=== PATIENT | female | born 1970 | race Two or more races ===

== ENCOUNTER 2023-04-29 11:28 | Inpatient (IN) | payer OTHER ==
[~2023-04-29] VITALS: Ht 157.5 cm; Wt 41.7 kg
[2023-04-29] MEDS: IV NS 0.9% 1,000 ML BAG IV ONE (13:15)
[2023-04-29 13:18] LABS: BASOPHILS # (AUTO) 0.1 K/uL (0.0-0.2); BASOPHILS % (AUTO) 0.5 % (0.0-2.0); EOSINOPHILS # (AUTO) 0.3 K/uL (0.0-0.7); HEMATOCRIT 40 % (33-45); LYMPHOCYTES # (AUTO) 2.2 K/uL (0.8-4.8); MEAN CORPUSCULAR HEMOGLOBIN 27 PG (26.0-33.0); MEAN CORPUSCULAR HGB CONC 33 g/dl (31.0-36.0); MEAN CORPUSCULAR VOLUME 82 fL (82-100); MONOCYTES # (AUTO) 0.7 K/uL (0.1-1.30); MONOCYTES % (AUTO) 7.1 % (2.0-12.0); NEUTROPHILS # (AUTO) 6.7 K/uL (1.8-8.9); NEUTROPHILS % (AUTO) 67.4 % (43.0-81.0); PLATELET COUNT (AUTO) 368 K/uL (150-450); RED BLOOD CELL COUNT(AUTO) 4.82 MIL/uL (4.0-5.2); RED CELL DISTRIBUTION WIDTH 17.1 % (11.5-15.0); WHITE BLOOD COUNT (AUTO) 9.9 K/uL (4.3-11.0)
[2023-04-29 13:27] LABS: CALCIUM, SERUM 8.7 mg/dL (8.5-10.1)
[2023-04-29 13:29] LABS: POTASSIUM 2.1 mmol/L (3.5-5.1)
[2023-04-29 13:33] LABS: ALBUMIN 4.3 g/dL (3.4-5.0); BILIRUBIN,DIRECT 0.1 mg/dL (0.0-0.2); BILIRUBIN,TOTAL 0.5 mg/dL (0.2-1.0); TOTAL PROTEIN, SERUM 8.2 g/dL (6.4-8.2)
[2023-04-29] MEDS ORDERED: POTASSIUM CL. PREMIX PERIPHER. 50 ML ONE ×4 (13:37→16:26)
[2023-04-29] MEDS ORDERED: POTASSIUM CHLORIDE 20 MEQ TAB.PRT.SR PO ONE (13:38)
[2023-04-29] MEDS ORDERED: LINA290C PO (13:40)
[2023-04-29] MEDS ORDERED: TRAM50TA2 PO (13:40)
[2023-04-29] MEDS ORDERED: LORA2TAB95 PO (13:40)
[2023-04-29] MEDS: POTASSIUM CHLORIDE 20 MEQ TAB.PRT.SR PO ONE ×2 (13:40→20:26)
[2023-04-29] MEDS ORDERED: CLON1TAB12 PO (13:40)
[2023-04-29] MEDS ORDERED: LEVO50TA PO (13:40)
[2023-04-29] MEDS ORDERED: TRAZ300T2 PO (13:40)
[2023-04-29] MEDS ORDERED: MULT-754 PO (13:40)
[2023-04-29] MEDS ORDERED: PANT40TA2 PO (13:40)
[2023-04-29] MEDS ORDERED: DULO20CA PO (13:40)
[2023-04-29 13:45] LABS: APPEARANCE,URINE SLIGHTLY CLOUDY (CLEAR); BILIRUBIN,URINE NEGATIVE (NEGATIVE); BLOOD, URINE TRACE-INTA Ery/uL (NEGATIVE); COLOR,URINE YELLOW (YELLOW); KETONES,URINE NEGATIVE (NEGATIVE); LEUKOCYTE ESTERASE ,URINE NEGATIVE (NEGATIVE); NITRITE, URINE NEGATIVE (NEGATIVE); PH,URINE 6.5 (5.0-8.0); PROTEIN,URINE 1+ mg/dl (NEGATIVE); UGLUCOSE NEGATIVE (NEGATIVE); UROBILINOGEN,URINE 0.2 EU/dL (0.2)
[2023-04-29] MEDS: POTASSIUM CL. PREMIX PERIPHER. 50 ML IV SCH (13:46)
[2023-04-29 13:47] LABS: ADD URINE CULTURE NO; BACTERIA,URINE Rare /HPF (None Seen); SQUAMOUS EPITHELIAL CELL,UR Rare /HPF (None Seen); WBC,URINE 0-2 /HPF (0-3)
[2023-04-29] MEDS ORDERED: ONDANSETRON HCL/PF 4 MG/2 ML VIAL IVP PRN (17:00)
[2023-04-29] MEDS ORDERED: ACETAMINOPHEN 325 MG TABLET PO PRN (17:00)
[2023-04-29 18:15] LABS: CALCIUM, SERUM 7.5 mg/dL (8.5-10.1); CREATININE 2.6 mg/dL (0.6-1.3); MAGNESIUM 1.9 mg/dL (1.8-2.4); POTASSIUM 2.9 mmol/L (3.5-5.1)
[2023-04-29] MEDS ORDERED: TRAZODONE 50 MG TABLET ONE (21:14)
[2023-04-29] MEDS: TRAZODONE 50 MG TABLET PO ONE (21:20)
[2023-04-29] MEDS ORDERED: TRAZODONE 50 MG TABLET PO ONE (21:30)
[2023-04-29] MEDS: IV LR 1000 ML 1,000 ML IV PRN (22:43)
[2023-04-29 22:44] VITALS: BP 116/75; TEMP 97.7; O2SAT 97
[2023-04-30] VITALS (7 sets, daily range): BP systolic 94–127; BP diastolic 46–79; TEMP 97.5–97.7; O2SAT 95–100
[2023-04-30 07:19] LABS: BASOPHILS % (AUTO) 0.7 % (0.0-2.0); EOSINOPHILS # (AUTO) 0.4 K/uL (0.0-0.7); EOSINOPHILS % (AUTO) 6.6 % (0.0-6.0); HEMATOCRIT 30 % (33-45); HEMOGLOBIN 9.8 g/dL (11.5-14.8); LYMPHOCYTES # (AUTO) 2.5 K/uL (0.8-4.8); LYMPHOCYTES % (AUTO) 41.6 % (20.0-44.0); MEAN CORPUSCULAR HEMOGLOBIN 27 PG (26.0-33.0); MEAN CORPUSCULAR HGB CONC 33 g/dl (31.0-36.0); MEAN CORPUSCULAR VOLUME 83 fL (82-100); MONOCYTES # (AUTO) 0.5 K/uL (0.1-1.30); MONOCYTES % (AUTO) 7.8 % (2.0-12.0); NEUTROPHILS # (AUTO) 2.6 K/uL (1.8-8.9); NEUTROPHILS % (AUTO) 43.3 % (43.0-81.0); PLATELET COUNT (AUTO) 258 K/uL (150-450); RED BLOOD CELL COUNT(AUTO) 3.62 MIL/uL (4.0-5.2)
[2023-04-30 07:50] LABS: CALCIUM, SERUM 7.8 mg/dL (8.5-10.1); CREATININE 2.4 mg/dL (0.6-1.3); MAGNESIUM 2.2 mg/dL (1.8-2.4); PHOSPHORUS 2.2 mg/dL (2.5-4.9)
[2023-04-30 07:58] LABS: POTASSIUM 2.6 mmol/L (3.5-5.1)
[2023-04-30] MEDS: PANTOPRAZOLE 40 MG TABLET.DR PO SCH (08:59)
[2023-04-30] MEDS: POTASSIUM CHLORIDE 10 MEQ TABLET.SA PO SCH (09:16)
[2023-04-30] MEDS: MORPHINE SULFATE INJ 4 MG/ML DISP.SYRIN IV ONE (09:17)
[2023-04-30] MEDS: POTASSIUM CL. PREMIX PERIPHER. 50 ML IV SCH ×2 (09:28→13:34)
[2023-04-30 11:04] LABS: APPEARANCE,URINE SLIGHTLY CLOUDY (CLEAR); BILIRUBIN,URINE NEGATIVE (NEGATIVE); BLOOD, URINE TRACE-INTA Ery/uL (NEGATIVE); COLOR,URINE YELLOW (YELLOW); KETONES,URINE NEGATIVE (NEGATIVE); LEUKOCYTE ESTERASE ,URINE TRACE (NEGATIVE); NITRITE, URINE NEGATIVE (NEGATIVE); PROTEIN,URINE NEGATIVE (NEGATIVE); UGLUCOSE NEGATIVE (NEGATIVE); UROBILINOGEN,URINE 0.2 EU/dL (0.2)
[2023-04-30 11:10] LABS: CREATININE, URINE 45.8 MG/DL (30.0-125.0)
[2023-04-30 12:02] LABS: EOSINOPHIL,URINE None Seen
[2023-04-30 12:23] LABS: ADD URINE CULTURE NO; BACTERIA,URINE Few /HPF (None Seen); RBC,URINE 0-2 /HPF (0-2); SQUAMOUS EPITHELIAL CELL,UR Few /HPF (None Seen)
[2023-04-30] MEDS: POTASSIUM CHLORIDE 10 MEQ TABLET.SA PO ONE (13:34)
[2023-04-30] MEDS: K PHOS NEUTRAL 250 MG TABLET PO ONE (15:16)
== END 2023-04-30 18:19 | disposition home or self-care (01) | DRG 641 ==
LOC: ER 11:39 → TELE 21:29
PROVIDERS: ADMIT Nurse Practitioner Family; ATTEND Nurse Practitioner Family
DX: E87.6 Hypokalemia (principal); N17.9 Acute kidney failure, unspecified; E44.1 Mild protein-calorie malnutrition; Z68.1 Body mass index [BMI] 19.9 or less, adult; E87.1 Hypo-osmolality and hyponatremia; F39 Unspecified mood [affective] disorder; F50.9 Eating disorder, unspecified; F55.2 Abuse of laxatives; G89.29 Other chronic pain; N18.9 Chronic kidney disease, unspecified; Z87.891 Personal history of nicotine dependence
CPT/HCPCS: 36415; 76770-TC; 80048-TC; 80076-TC; 81001; 82570-TC; 83735-TC; 84100-TC; 84132-TC; 84300-TC; 85025-TC; A4223; G0378; J2270; J3480; J7120